=== PATIENT | male | born 1955 ===

== ENCOUNTER 2021-09-22 20:59 | Emergency (ER) | payer OTHER, SELFPAY ==
[2021-09-22 21:19] VITALS: BP 179/87; PULSE 57; RESP 16; TEMP 36.9; O2SAT 97; BMI 35.9
[2021-09-22 21:36] LABS: MANUAL DIFF FLAG NO
[2021-09-22 21:40] LABS: Basophils Percent Auto 0.4 % (0-2); Eosinophils Absolute Auto 0.1 X10*3/uL (0.0-0.4); Hematocrit 44.5 % (42.0-52.0); Hemoglobin 15.1 g/dl (14.0-18.0); Imm Gran Abs Auto 0.01 X10*3/uL (0.00-0.03); Imm Gran Pct Auto 0.2 % (0.0-0.4); Lymphocytes Percent Auto 35.3 % (20-40); Mean Corpuscular HGB Conc 33.9 g/dl (31.0-36.0); Mean Corpuscular Hemoglobin 31.6 pg (27.0-33.0); Mean Corpuscular Volume 93.1 fL (80.0-98.0); Mean Platelet Volume 9.3 fL (9.4-12.4); Monocytes Absolute Auto 0.7 X10*3/uL (0.1-1.2); Neutrophils Absolute Auto 2.8 x10*3/uL (2.0-8.3); Neutrophils Percent Auto 50.1 % (45-73); Platelet Count 176 X10*3/uL (160-400); Red Blood Count 4.78 X10*6/uL (4.60-5.80); Red Cell Distribution Width 12.7 % (11.0-16.0); White Blood Count 5.5 X10*3/uL (4.8-10.8)
--- NOTE | 2021-09-22 22:01 | PC.NURSE ---
patient reports the pressure in the back of his head is now traveling to the front of his head. vitals reassessed as documented
[2021-09-22 22:02] VITALS: BP 167/74; BP 171/77; PULSE 56; RESP 18; O2SAT 96
[2021-09-22 22:09] LABS: Anion Gap 15 (12-20); Blood Urea Nitrogen 16 mg/dL (9-16); Calcium 9.4 mg/dL (8.4-10.2); Carbon Dioxide 27 mmol/L (22-29); Chloride 106 mmol/L (96-108); Creatinine Clr Calc Pharmacy 79.3; Estimated Glomerular Filt Rate 60; Glucose Random 100 mg/dL (60-115); Potassium 4.7 mmol/L (3.3-5.1); Sodium 143 mmol/L (135-145)
[2021-09-22 23:07] LABS: Influenza A PCR NEGATIVE (Negative); Influenza B PCR NEGATIVE (Negative); Resp Syncy Virus RNA Qual PCR NEGATIVE (Negative); SARS COV2 PCR INHOUSE NEGATIVE (Negative)
[2021-09-22 23:38] VITALS: BP 166/75; PULSE 58; RESP 18; TEMP 36.5; O2SAT 99
--- NOTE | 2021-09-23 00:31 | ED_ITS ---
HPI - Headache General Chief Complaint: Headache Stated Complaint: head pressure Time Seen by Provider: 09/22/21 21:30 Source: patient and other Mode of arrival: ambulatory History of Present Illness HPI Narrative: 66-year-old male with history of hypertension presents with headache that he describes began at bilateral neck and extended up over the posterior back of his head and wraps around to the front of his forehead. He states that he took his blood pressure 3 times and was noted to be elevated into the 170s over 80s to 100s. Patient denies any associated visual blurriness/double vision/loss of vision and denies any auditory or speech deficits. In addition, patient denies any motor/numbness/tingling to any extremities and denies any associated shortness of breath or chest pain/palpitations. Patient denies any recent medi cation changes or new medications. Related Data Allergies Allergy/AdvReac Type Severity Reaction Status Date / Time No Known Allergies Allergy Verified 09/22/21 21:23 Review of Systems Review of Systems: Pertinent positives and negatives as stated in HPI 10 point review of systems is otherwise negative. PMFSH Past Medical History Source: nursing notes reviewed Medical History HTN (hypertension) Social History Social History Advance Directives: No Physical Exam Vital Signs: Vital Signs: Last Vital Signs Temp 97.9 F 09/23/21 00:57 Pulse 57 09/23/21 00:57 Resp 22 H 09/23/21 00:57 BP 144/63 H 09/23/21 00:57 Pulse Ox 95 09/23/21 00:57 BMI result Body Mass Index 35.9 VITAL SIGNS: Reviewed. GENERAL: Well developed, well nourished, in no acute distress. HEAD: Normocephalic/atraumatic EYES: PERRLA, EOMI EARS: Ext canals without abnormality OROPHARYNX: no oral lesions noted, posterior pharynx clear LUNGS: Normal breath sounds. No adventitious sounds or accessory muscle use. SpO2<99> CARDIOVASCULAR: Regular rate and rhythm without noted murmurs, no JVD or lower extremity edema. ABDOMEN: Soft, non-tender, non-distended with bowel sounds. MUSCULOSKELETAL: No tenderness, deformities, or effusions noted on gross inspection. EXTREMITIES: No cyanosis, clubbing or edema. SKIN: Inspection of the skin reveals no rashes NEUROLOGIC: Alert and oriented x 4. Strength and sensation to light touch were grossly intact x 4, no facial asymmetry, no pronator drift, cranial nerves 2-12 are grossly intact, cerebellar testing with past-pointing and heel to jennings are without deficits. Course Course Course Narrative: 66-year-old male with history and clinical presentation most consistent with tension/stress headache and low clinical suspicion for neuro deficits. Since patient did not try Tylenol prior to presentation will provide 1 g of Tylenol and re-evaluate. On review of all investigations there are no acute findings. On re-evaluation after patient received Tylenol he reports he has complete resolution of his headache and states feeling much better. All results discussed with him and he was discharged home in stable condition. MDM - Headache Lab Data Result diagrams: 09/22/21 21:32 09/22/21 21:31 Labs: Lab Results 09/22/21 09/22/21 09/22/21 Range/Units 21:31 21:32 22:20 WBC 5.5 (4.8-10.8) X10*3/uL RBC 4.78 (4.60-5.80) X10*6/uL Hgb 15.1 (14.0-18.0) g/dl Hct 44.5 (42.0-52.0) % MCV 93.1 (80.0-98.0) fL MCH 31.6 (27.0-33.0) pg MCHC 33.9 (31.0-36.0) g/dl RDW 12.7 (11.0-16.0) % Plt Count 176 (160-400) X10*3/uL MPV 9.3 L (9.4-12.4) fL Immature Gran % (Auto) 0.2 (0.0-0.4) % Neut % (Auto) 50.1 (45-73) % Lymph % (Auto) 35.3 (20-40) % [place] % (Auto) 12.0 H (2-11) % Eos % (Auto) 2.0 (0-4) % Baso % (Auto) 0.4 (0-2) % Lymph # (Auto) 2.0 (1.2-4.9) X10*3/uL [place] # (Auto) 0.7 (0.1-1.2) X10*3/uL Eos # (Auto) 0.1 (0.0-0.4) X10*3/uL Baso # (Auto) 0.0 (0.0-0.2) X10*3/uL Abs Immat Gran (auto) 0.01 (0.00-0.03) X10*3/uL Absolute Neuts (auto) 2.8 (2.0-8.3) x10*3/uL Absolute Nucleated RBC 0.000 (0.0-0.012) X10*3/uL Nucleated RBC % (auto) 0.0 (0.0-0.2) /100WBC Sodium 143 (135-145) mmol/L Potassium 4.7 (3.3-5.1) mmol/L Chloride 106 (96-108) mmol/L Carbon Dioxide 27 (22-29) mmol/L Anion Gap 15 (12-20) BUN 16 (9-16) mg/dL Creatinine 1.21 (0.5-1.4) mg/dL Estim Creat Clear Calc 79.3 Estimated GFR 60 Random Glucose 100 (60-115) mg/dL Calcium 9.4 (8.4-10.2) mg/dL Influenza Type A (PCR) NEGATIVE (Negative) Influenza Type B (PCR) NEGATIVE (Negative) RSV RNA Qual (PCR) NEGATIVE (Negative) SARS-CoV-2 RNA (RT-PCR) NEGATIVE (Negative) Discharge Plan Discharge Clinical Impression: Headache, Hypertension Patient Disposition: Home, Self-Care Instructions: General Headache (ED), Tension Headache (ED), Hypertension (ED), DASH Eating Plan (ED) Additional Instructions: 1. Resume all home medications as prescribed. 2. Tylenol 1000 mg, orally, every 6 hours as needed for pain/headache control. Do not exceed 4000 mg within 24 hours. Recommend avoiding NSAIDs (ibuprofen, Motrin, Naprosyn) as this may contribute to elevated blood pressures. 3. Follow-up with your primary care provider in the next 2-3 days for re- evaluation and further outpatient management. Return to the ER for worsening symptoms. Referrals: Benoit Upton MD [Primary Care Provider] - 2 days
[2021-09-23 00:57] VITALS: BP 144/63; PULSE 57; RESP 22; TEMP 36.6; O2SAT 95
[2021-09-23] MEDS: Acetaminophen 325 MG TABLET 975 MG PO (01:37)
--- NOTE | 2021-09-23 01:39 | PC.NURSE ---
medicated per Mar
[2021-09-23 02:28] VITALS: BP 140/58; PULSE 55; RESP 24; O2SAT 95
== END 2021-09-23 02:53 | disposition home or self-care (01) ==
PROVIDERS: Emergency Provider Student in an Organized Health Care Education/Training Program; PCP Family Medicine
DX: R51.9 Headache, unspecified (principal); I10 Essential (primary) hypertension; Z20.822 Contact with and (suspected) exposure to COVID-19
CPT/HCPCS: 0241U; 36415; 80048; 85025; 99283; 99284

== ENCOUNTER 2023-01-05 16:45 | Emergency (ER) | payer OTHER, SELFPAY ==
--- NOTE | 2023-01-05 16:46 | ED.GENADULT ---
HPI - General Adult General Chief complaint: Abdominal Pain Stated complaint: upper abd pain Time Seen by Provider: 01/05/23 17:08 Source: patient Mode of arrival: ambulatory Limitations: no limitations History of Present Illness HPI narrative: Patient is a 67-year-old male presents emergency department for evaluation of abdominal pain. Patient reports that he was doing some mild lifting, caring boxes to and from his car. Soon thereafter while driving he developed sudden onset of ?excruciating? mid upper abdominal pain and nausea. He had to bone puller to the side of the road and was dry heaving. He reports feeling well prior to this onset. Denies dizziness, lightheadedness, chest pain, neck pain, shortness of breath, difficulty breathing, lower abdominal pain, diarrhea, constipation, genitourinary symptoms, numbness or tingling of the extremities. He has a history of hypertension, reports medication compliance, no recent dosage changes, states his blood pressures typically 130-140 systolic we. Reports remote history of pancreatitis secondary to HCTZ usage. Related Data Allergies Allergy/AdvReac Type Severity Reaction Status Date / Time No Known Allergies Allergy Verified 09/22/21 21:23 Review of Systems Review of Systems: Constitutional : No Weight loss, No Fever, No Chills ENT/Mouth :? No sore throat, No Rhinorrhea Eyes: No Swelling, No Redness Cardiovascular : No Chest Pain, No SOB, No Edema Respiratory : No Cough, No Sputum, No Wheezing Gastrointestinal : Positive Nausea, no Vomiting, no Diarrhea, positive abdominal pain, No Hematochezia, No Melena Genitourinary : No Dysuria, No Urinary Frequency, No Hematuria, No Urgency? Musculoskeletal : No joint pain, No Myalgias, No Joint Swelling Skin : No Skin Lesions, No rash Neuro : No Weakness, No Numbness, No Dizziness, No Headache Psych : No Anxiety/Panic, No Depression Heme/Lymph: No Bruising, No Lymphadenopathy Endocrine : No Polyuria, No Polydipsia Yes all other systems are reviewed and are negative [facility] Past Medical History Attestation statement: The following information was validated with the patient. Source: old records reviewed Medical History HTN (hypertension) Social History Social History Alcohol intake: current Alcohol intake frequency: a few times a week Smoked in Last 30 Days: No Use of substances other than those prescribed or required for medical reasons: No Advance Directives: Yes Advance Directives Information Provided: No Advance Directives on File: No Physical Exam ED Vital Signs: Vital Signs - 24 hr 01/05/23 16:49 01/05/23 17:21 01/05/23 17:30 Temperature 97.4 F 98 F Pulse Rate 55 55 51 Respiratory Rate 20 17 Blood Pressure 133/70 104/37 L 107/47 L Pulse Oximetry 100 97 Oxygen Delivery Method Room Air Room Air 01/05/23 17:33 01/05/23 17:33 01/05/23 20:29 Temperature 97.7 F Pulse Rate 57 58 56 Respiratory Rate 18 Blood Pressure 103/47 L 99/44 L 103/43 L Pulse Oximetry 97 Oxygen Delivery Method Room Air BMI result Body Mass Index 33.8 Appearance: Alert.?Oriented to person, place and time. No acute distress.?Normal affect. Eyes: Pupils equal, round and reactive to light.? ENT: Pharynx normal.?? Neck: Normal inspection.? Neck supple.?? CVS: Heart sounds normal. Normal heart rate and rhythm.? Pulses normal.?? Respiratory: No respiratory distress.? Lung sounds clear to auscultation bilaterally?? Abdomen: Soft with mild tenderness upon palpation midline just superior to umbilicus. Normoactive bowel sounds. No pulsatile mass.?? Skin: Skin warm and dry.? Normal skin color.? Extremities: No lower extremity edema.? No calf ttp? Neuro: Moves all extremities spontaneously. Sensation intact bilaterally. CN II-XII intact. No focal neuro deficits. Ambulates with normal steady gait. Course Course Course Narrative: 67-year-old male with past medical history significant for hypertension presents for evaluation of upper abdominal pain and nausea. His symptoms started about 30 minutes ago. Patient reports his pain is 9 in 10, he appears very uncomfortable. Plan for EKG, labs, chest x-ray Reevaluation(s) Reevaluation #1: CBC reveals a mild normocytic anemia. CMP reveals mild SUAD; BUN 32 creatinine 1.48, when compared to September of 2021. Patient received 1 L normal saline IV fluid. Elevated AST/ ALT 113/77 with normal lipase. Troponin <2.7, EKG revealing sinus bradycardia with Q-waves in lead III and V1. Orthostatic vital signs are normal. CT angio of the chest without acute abnormality. CT angio of the abdomen and pelvis without evidence of aneurysm or dissection. Mildly dilated CBD without stone on CT, no evidence of pancreatitis. Will obtain ultrasound for further evaluation at this time. Time: 19:07 Reevaluation #2: Ultrasound does not reveal evidence of cholecystitis or cholelithiasis, dilated CBD at [address] imaging. No intrahepatic biliary ductal dilation. Urinalysis reveals no evidence of urinary tract infection or microscopic hematuria. At this time feel the patient is stable for discharge home, outpatient follow-up with primary care provider. Reviewed worrisome signs and symptoms that would warrant re-evaluation in the emergency department. All questions answered. Stable for discharge. Medications Administered Discontinued Medications Generic Name Dose Route Start Last Admin Trade Name Freq PRN Reason Stop Dose Admin Sodium Chloride 1,000 mls @ 999 mls/hr 01/05/23 18:00 01/05/23 20:08 Ns IV 01/05/23 19:00 Infused .Q1H1M SHRUTHI Infusion Iohexol 100 ml 01/05/23 18:22 01/05/23 18:22 Iohexol 350 Mg/Ml 100 Ml Infus..Btl IV 01/05/23 18:23 85 ml ONCE ONE Administration Medical Decision Making Medical Decision Making MDM Narrative: Patient is a 67-year-old male with past medical history of hypertension, hyperlipidemia, pancreatitis presenting to emergency department for evaluation of sudden-onset abdominal pain as per HPI. Patient at the time of my examination is overall well-appearing, pain with some improvement, currently 4/10. Upon arrival to the emergency department BP 130/70 which is consistent with baseline. At my examination blood pressure is 100/40 bilaterally. Will obtain CBC to evaluate for leukocytosis/ anemia, CMP and lipase to evaluate for abnormal electrolytes /abnormal renal function/ abnormal hepatic/biliary function, EKG and troponin to evaluate for ischemia/ACS. Plan to obtain CT angio of chest abdomen and pelvis. Chest x-ray to evaluate for consolidation/ infiltrate/ mass/ pulmonary congestion and Urinalysis. Differential Diagnosis Differential Diagnoses: The differential diagnosis associated with the presentation includes (Aortic aneurysm, aortic dissection, ACS, gastritis, pancreatitis, cholecystitis, nephrolithiasis, appendicitis, diverticulitis) Admission/Observation Consideration of admission/observation: Escalation of care including admission/observation considered (i considered admission for sudden onset abdominal pain nausea and borderline blood pressure) Lab Data MDM Lab Attestation statement: I reviewed the patient's lab results. (As per course narrative) 01/05/23 17:08 01/05/23 17:08 Labs: Lab Results 01/05/23 01/05/23 01/05/23 Range/Units 17:08 17:08 17:08 WBC 8.0 (4.8-10.8) X10*3/uL RBC 4.12 L (4.60-5.80) X10*6/uL Hgb 13.4 L (14.0-18.0) g/dl Hct 38.6 L (42.0-52.0) % MCV 93.7 (80.0-98.0) fL MCH 32.5 (27.0-33.0) pg MCHC 34.7 (31.0-36.0) g/dl RDW 12.4 (11.0-16.0) % Plt Count 198 (160-400) X10*3/uL MPV 9.1 L (9.4-12.4) fL Immature Gran % (Auto) 0.4 (0.0-0.4) % Neut % (Auto) 52.6 (45-73) % Lymph % (Auto) 35.2 (20-40) % [place] % (Auto) 9.6 (2-11) % Eos % (Auto) 1.8 (0-4) % Baso % (Auto) 0.4 (0-2) % Lymph # (Auto) 2.8 (1.2-4.9) X10*3/uL [place] # (Auto) 0.8 (0.1-1.2) X10*3/uL Eos # (Auto) 0.1 (0.0-0.4) X10*3/uL Baso # (Auto) 0.0 (0.0-0.2) X10*3/uL Abs Immat Gran (auto) 0.03 (0.00-0.03) X10*3/uL Absolute Neuts (auto) 4.2 (2.0-8.3) x10*3/uL Absolute Nucleated RBC 0.000 (0.0-0.012) X10*3/uL Nucleated RBC % (auto) 0.0 (0.0-0.2) /100WBC PT 11.2 (10.0-13.1) SEC INR 1.0 (0.9-1.1) APTT 27.2 (26.0-36.4) SEC Sodium 142 (135-145) mmol/L Potassium 4.9 (3.3-5.1) mmol/L Chloride 113 H (96-108) mmol/L Carbon Dioxide 19 L (22-29) mmol/L Anion Gap 15 (12-20) BUN 32 H (9-16) mg/dL Creatinine 1.48 H (0.5-1.4) mg/dL Estim Creat Clear Calc 61.9 Estimated GFR 47 Random Glucose 125 H (60-115) mg/dL Calcium 9.9 (8.4-10.2) mg/dL Total Bilirubin 0.9 (0.0-1.0) mg/dL AST 113 H (5-37) U/L ALT 77 H (0-40) U/L Alkaline Phosphatase 59 (39-117) U/L Troponin I High Sens (<3.5-35.0) ng/L Total Protein 7.6 (6.5-8.0) g/dL Albumin 4.4 (3.5-5.0) g/dL Lipase 55 (8-78) U/L Urine Color Urine Appearance Urine pH (5.0-9.0) Ur Specific [place] (1.005-1.025) Urine Protein (Neg-Trace) mg/dL Urine Glucose (UA) (Negative) mg/dL Urine Ketones (Negative) mg/dL Urine Blood (Negative) Urine Nitrite (Negative) Ur Leukocyte Esterase (Negative) 01/05/23 01/05/23 Range/Units 17:08 20:42 WBC (4.8-10.8) X10*3/uL RBC (4.60-5.80) X10*6/uL Hgb (14.0-18.0) g/dl Hct (42.0-52.0) % MCV (80.0-98.0) fL MCH (27.0-33.0) pg MCHC (31.0-36.0) g/dl RDW (11.0-16.0) % Plt Count (160-400) X10*3/uL MPV (9.4-12.4) fL Immature Gran % (Auto) (0.0-0.4) % Neut % (Auto) (45-73) % Lymph % (Auto) (20-40) % [place] % (Auto) (2-11) % Eos % (Auto) (0-4) % Baso % (Auto) (0-2) % Lymph # (Auto) (1.2-4.9) X10*3/uL [place] # (Auto) (0.1-1.2) X10*3/uL Eos # (Auto) (0.0-0.4) X10*3/uL Baso # (Auto) (0.0-0.2) X10*3/uL Abs Immat Gran (auto) (0.00-0.03) X10*3/uL Absolute Neuts (auto) (2.0-8.3) x10*3/uL Absolute Nucleated RBC (0.0-0.012) X10*3/uL Nucleated RBC % (auto) (0.0-0.2) /100WBC PT (10.0-13.1) SEC INR (0.9-1.1) APTT (26.0-36.4) SEC Sodium (135-145) mmol/L Potassium (3.3-5.1) mmol/L Chloride (96-108) mmol/L Carbon Dioxide (22-29) mmol/L Anion Gap (12-20) BUN (9-16) mg/dL Creatinine (0.5-1.4) mg/dL Estim Creat Clear Calc Estimated GFR Random Glucose (60-115) mg/dL Calcium (8.4-10.2) mg/dL Total Bilirubin (0.0-1.0) mg/dL AST (5-37) U/L ALT (0-40) U/L Alkaline Phosphatase (39-117) U/L Troponin I High Sens < 2.7 (<3.5-35.0) ng/L Total Protein (6.5-8.0) g/dL Albumin (3.5-5.0) g/dL Lipase (8-78) U/L Urine Color Yellow Urine Appearance Clear Urine pH 5.5 (5.0-9.0) Ur Specific [place] >= 1.030 H (1.005-1.025) Urine Protein Negative (Neg-Trace) mg/dL Urine Glucose (UA) Negative (Negative) mg/dL Urine Ketones Negative (Negative) mg/dL Urine Blood Negative (Negative) Urine Nitrite Negative (Negative) Ur Leukocyte Esterase Negative (Negative) Independent Interpretation I performed an independent interpretation of an: EKG Interpretation: Rate: 54 Rhythm:? Sinus bradycardia [place]:? Normal Normal P waves.? Normal BERT.?? Normal QRS complex.?? ST T wave :? No ST elevation, no ST depression? qTC: 409 prior studies:? None prior available for review The study has been interpreted contemporaneously by me. Radiology Impression Discussion of test interpretation with radiology: I have reviewed the radiologist's reading. Radiologist Impression: CT/CT angio abdomen pelvis IMPRESSION: Normal vascular structures. No evidence of aneurysm or dissection. Upper normal-size gallbladder. No gallstone seen by CT. Slightly dilated common bile duct dilated down to the head of the pancreas measuring 1 cm. No common bile duct stone seen by CT. Normal-appearing pancreas. Follow-up ultrasound or MR with MRCP should be considered. Mild diverticulosis of the colon. No evidence of diverticulitis. Enlarged prostate gland. Cortical thinning or scarring of the left kidney. CT/CT angio chest aorta IMPRESSION: Normal-appearing thoracic aorta. No evidence for acute disease in the chest. US/US abdomen limited IMPRESSION: Dilated common bile duct measuring 1 cm. No filling defect seen on these images. No intrahepatic biliary ductal dilatation. Discharge Plan Discharge Clinical Impression: Abdominal pain Patient Disposition: Home, Self-Care Instructions: Acute Abdominal Pain (ED) Additional Instructions: As discussed, your blood work today was overall normal. There is some mild elevation in your liver enzymes, however there is no abnormality on your ultrasound. You had a CT angiogram of your chest abdomen and pelvis as well which was overall normal, the only abnormal finding today with a mild elevation of the common bile duct, without any evidence of stones. Your urine testing did not show any evidence of infection. Please contact your primary care provider to arrange for a follow-up visit in 1-3 days. You may return back to the emergency department with any new or worsening symptoms or concerns. Referrals: Benoit Upton MD [Primary Care Provider] -
[2023-01-05 16:49] VITALS: BP 133/70; PULSE 55; RESP 20; TEMP 36.3; O2SAT 100; BMI 33.8
[2023-01-05 17:21] VITALS: BP 104/37; PULSE 55; RESP 17; TEMP 36.6; O2SAT 97
[2023-01-05 17:30] VITALS: BP 107/47; PULSE 51
[2023-01-05 17:33] VITALS: BP 103/47; BP 99/44; PULSE 57; PULSE 58
--- NOTE | 2023-01-05 17:48 | ECG_ITS ---
Test Reason : ABDPAIN Blood Pressure : / mmHG Vent. Rate : 054 BPM Atrial Rate : 054 BPM P-R Int : 158 ms QRS Dur : 084 ms QT Int : 432 ms P-R-T Axes : 002 006 008 degrees QTc Int : 409 ms Sinus bradycardia Otherwise normal ECG When compared with ECG of 05-JAN-2023 16:57, No significant change was found Referred By: Sarai Zambrano Electronically Signed By:BRANDT FRYE
--- NOTE | 2023-01-05 18:07 | PC.NURSE ---
Addendum entered by Judith Saravia 01/05/23 18:13: VSS but slight drop in BP while obtaining orthos. provider aware. Original Note: pt axox4, respirations even and unlabored, skin WPD. c/o upper abd pain without radiation; reports nausea denies vomiting/diarrhea/constipation. Pt reports having BM today. +bowel sounds x 4; no abd distention/tenderness. labs drawn, iv established; fluids infusing. awaiting CT scan. pt resting in stretcher; denies having questions at this time.
--- NOTE | 2023-01-05 20:14 | PC.NURSE ---
this rn assumed care of pt @ 1900. pt calm and cooperative visitor at bedside. IVF completed. awaiting disposition
[2023-01-05 20:29] VITALS: BP 103/43; PULSE 56; RESP 18; TEMP 36.5; O2SAT 97
--- NOTE | 2023-01-05 20:30 | MHC.EDTECH ---
This tech assumed care of pt at 1999, Hourly rounds completed, vitals taken,bp was low at 103/43 RN Jessie and MANAGER HOSPICE Sarai were made aware.Patient urinated 650cc of yellow urine in urinal.UAcc obtained and sent to lab, Call yudith is within reach.
[2023-01-05 21:04] VITALS: BP 122/54; PULSE 54; RESP 16; O2SAT 96
== END 2023-01-05 21:07 | disposition home or self-care (01) ==
PROVIDERS: Emergency Provider Emergency Medicine Emergency Medical Services; PCP Family Medicine
DX: R10.10 Upper abdominal pain, unspecified (principal); K57.30 Diverticulosis of large intestine without perforation or abscess without bleeding; D64.9 Anemia, unspecified; I10 Essential (primary) hypertension; Z79.899 Other long term (current) drug therapy
CPT/HCPCS: 36415; 71275; 74174; 76705; 80053; 81003; 83690; 84484; 85025; 85610; 85730; 93005; 96360; 96361; 99284; 99285; Q9967